=== PATIENT | female | born 1990 | race Caucasian/White ===

== ENCOUNTER 2025-09-18 10:13 | Emergency (ER) | payer SELFPAY ==
[2025-09-18 10:14] VITALS: BP 137/97
--- NOTE | 2025-09-18 10:34 | ED.GENMED ---
History of Present Illness
General
Chief Complaint: Dizziness
Source: patient
Time Seen by Provider: 09/18/25 10:25
History of Present Illness
History of Present Illness:
This patient is a 35-year-old female who presents emergency department with complaints of intermittent dizziness that she noticed on and off since yesterday. Episodes last seconds at a time and then resolved completely. With these episodes she
says sometimes her vision is a little blurry as well. She denies double vision. Patient denies headache, neck pain, recent trauma, recent hyperextension, fever, chills, chest pain, shortness of breath, abdominal pain, nausea, vomiting, gait
dysfunction. Today, she noted 'tingling' described as 'not numbness' in the left side, mostly in the joint area including hip and elbow. She says it feels like it is 'a little cold'. This prompted her visit to the ER. She denies focal weakness,
change in speech, change in swallowing, or other complaints. There is a family history of renal failure, no history in the family or personally of aneurysms, stroke, etc.
Past History
Past History
ED Past Medical History: None
ED Past Surgical History: None
Social History
Tobacco: Non-smoker
Alcohol: None
Drug: Marijuana
Personal:
Living: with family
Employment: Employed
Phy Exam
Physical Exam
Physical Exam:
GENERAL: Alert , in no apparent distress
EYE: pupils equal and reactive, EOMI, no nystagmus, no photophobia
NECK: Supple, no significant adenopathy.
ENT: o/p clr, mmm.
CARDIAC: Regular rate and rhythm .
LUNGS: Clear breath sounds bilaterally, no acute respiratory distress, no wheezes/rales/rhonchi
ABDOMEN: Soft, without focal tenderness, no r/g, no cvat
NEUROLOGICAL: Alert and oriented, no focal neuro deficits, gait normal, [id number] normal, cranial nerves II through XII intact, motor 5 out of 5, sensory intact to light touch, visual smith intact
SKIN: Warm and dry, skin intact.
MUSCULOSKELETAL: No edema, well perfused.
PSYCH: Normal and appropriate interaction.
Course
Orders/Labs/Results
Orders:
Orders
09/18/25 10:17
Electrocardiogram (*1) Urgent
Reason for Study: Vertigo / Dizzy
EKG- Treatment ONCE
09/18/25 10:37
CT Head W/o Iv Contrast Urgent
Comment:
Reason For Exam: dizzy
Cardiac Monitoring- Treatment ONCE
Orthostatic VS- Treatment ONCE
09/18/25 10:38
Electrocardiogram (*1) Stat
Reason for Study: Other
Other Reason for Exam: neuro symptoms
EKG- Treatment ONCE
09/18/25 11:11
Complete Blood Count/No Diff Urgent
Comprehensive Metabolic Panel Urgent
09/18/25 11:11
09/18/25 11:11
Vital Signs
Initial and Last Documented VS:
Initial Vital Signs
Temp Pulse Resp BP Pulse Ox
99.5 F 93 18 137/97 100
09/18/25 10:14 09/18/25 10:14 09/18/25 10:14 09/18/25 10:14 09/18/25 10:14
Last Documented Vital Signs
Temp Pulse Resp BP Pulse Ox
98.5 F 95 12 132/116 100
09/18/25 11:18 09/18/25 11:20 09/18/25 11:20 09/18/25 11:20 09/18/25 11:20
*Pulse Oximetry
SaO2: 100
Oxygen Mode of Delivery: Room air
Patient hypoxic: no
*Critical Care Note
Total Time (30-74mins, 75-104mins- exclusive of procedures): Not Applicable
Update Note
Update Note:
Patient presents to the Emergency Department with ____dizziness and tingling
Number and Complexity of Problems Addressed at the Encounter
� Chronic conditions affecting care:
� Acute Exacerbation and/or Progression of Chronic Illness:
� Differential Diagnosis includes: But not limited to electrolyte disorder, orthostasis, dehydration, CVA, etc. etc.
Amount and/or Complexity of Data to be Reviewed and Analyzed
� I performed an independent evaluation of and my interpretation is:
EKG:
CT: Read by radiology head CT NAD
Xrays:
Laboratory Studies: Unremarkable
Other:
� Review of other/old records reveals:
� Clinical information was obtained by an independent historian:
� Prescriptions/Medications Considered but not given:
� Further testing considered but not performed:
Risk of Complications and/or Morbidity or Mortality of Patient Management
� Social determinants of health affecting care:
� Discussion with other providers (PCP, Hospitalists, Consultants, etc):
� Escalation of care including admission/observation vs risk of discharge considered: Patient denies estrogen use or hypercoagulable history. Neurological exam is normal.
Incidentally patient states that she thinks that she may have a retained tampon from 2 weeks ago but she is not certain. Therefore a pelvic exam was performed by me with Diana MALAGON present, no tampon noted, normal exam. Patient denies numbness,
focal weakness, headache, double vision, or other worrisome symptoms. She specifically denies numbness but rather refers to it as a [id number] tingling sensation which makes me much less concerned about a central event. Discussed with her
importance of follow-up and recent return to ER.
ED Attending Note
-
Portions of this chart may have been created with voice recognition software.� Occasional wrong word or��sound alike� substitutions may have occurred due to the inherent limitations of voice recognition software.
Discharge Plan
Departure
Patient Disposition: Home (Routine Discharge)
Date of Disposition: 09/18/25
Time of Disposition: 12:16
Patient with high blood pressure during this ER visit?: Yes
Condition: Good
Discharge Problem:
Dizziness
Instructions: BLOOD PRESSURE, Dizziness
Prescriptions:
No Action
No Current Medications
0
Referrals:
Dmitry Coronel DO [Family Provider, Family Practice] - Follow up in 2-3 days
Activity Restrictions/Additional Instructions:
IF YOU DEVELOP FEVER, CHEST PAIN, TROUBLE BREATHING, VOMITING, NUMBNESS, SEVERE HEADACHE, WEAKNESS OR OTHER WORRISOME SIGNS, GO TO THE ER IMMEDIATELY!
Interventions
Interventions:
*General Assessment Last Done: 09/18/25 11:18
*Neglect/Abuse Screening Last Done: 09/18/25 11:18
*ED COVID-19 Vaccine History Last Done: 09/18/25 11:18
*ED Influenza Vaccine History Last Done: 09/18/25 11:18
[facility] Fall Risk Assessment Tool Last Done: 09/18/25 11:18
*Risk Screen - Suicide (C-SSRS) Last Done: 09/18/25 11:18
ED- Neurological Assessment Last Done: 09/18/25 11:18
ED- Cardiac Assessment Last Done: 09/18/25 11:18
ED Swallowing Screen Last Done: 09/18/25 11:18
Discharge Date and Time
Print Language: [place]
[2025-09-18 11:11] VITALS: BMI 29.2
[2025-09-18 11:14] VITALS: BP 135/90
[2025-09-18 11:18] VITALS: BP 132/116; BP 135/90; BP 145/109; PULSE 77; PULSE 84; PULSE 87
[2025-09-18 11:19] VITALS: BP 140/106
[2025-09-18 11:20] VITALS: BP 132/116
[2025-09-18 11:42] LABS: Hematocrit 38.5 % (37.0-47.0); Hemoglobin 13.7 g/dL (12.0-16.0); Mean Corp Hgb Conc. 35.6 g/dL (33.0-37.0); Mean Corpuscular Volume 86.5 fL (81.0-99.0); Platelet Count 233 10^3/uL (130-400); Red Cell Dist. Width 11.9 % (11.5-14.5)
[2025-09-18 11:52] LABS: ALT (SGPT) 18 U/L (0-35); AST (SGOT) 17 U/L (14-36); Albumin 5.0 g/dl (3.5-5.0); Alkaline Phosphatase 68 U/L (38-126); Blood Urea Nitrogen 11 mg/dl (7-17); Calcium 10.0 mg/dl (8.4-10.2); Carbon Dioxide 25 mmol/L (22-30); Chloride 103 mmol/L (98-107); Estimated Creatinine Clearance 112 ml/min; Glucose 94 mg/dl (70-99); Potassium 4.1 mmol/L (3.5-5.1); Sodium 136 mmol/L (135-145); Total Protein 7.6 g/dl (6.3-8.2); eGFR > 60.00
[2025-09-18 12:00] VITALS: BP 129/80
== END 2025-09-18 12:59 | disposition home or self-care (01) ==
LOC: EMR 10:13
PROVIDERS: EMERGENCY PHYSICIAN Emergency Medicine; FAMILY PHYSICIAN Family Medicine
DX: R42 Dizziness and giddiness (principal)
CPT/HCPCS: 99284; 70450; 80053; 85027; 93005